=== PATIENT | female | born 2000 | race Hispanic/Latino ===

== ENCOUNTER 2023-06-18 07:42 | Inpatient (IN) | payer OTHER ==
[2023-06-18] VITALS (16 sets, daily range): BP systolic 116–142; BP diastolic 64–89
[~2023-06-18] VITALS: Ht 154.9 cm; Wt 90.4 kg
[2023-06-18] MEDS ORDERED: URSO300C3 PO (07:59)
[2023-06-18] MEDS ORDERED: MULTTAB20 PO (07:59)
[2023-06-18] MEDS ORDERED: HOME MED LIST COMPLETE! XX SCH (08:10)
[2023-06-18] MEDS ORDERED: OXYTOCIN DRIP 30 UNITS in IV 1 EA IV PRN ×4 (08:20)
[2023-06-18] MEDS ORDERED: TRANEXAMIC ACID INJection 1,000 MG in NS 100 ML IV PRN (08:20)
[2023-06-18] MEDS ORDERED: CARBOPROST TROMETHAMINE 250 MCG/ML AMP IM PRN (08:20)
[2023-06-18] MEDS ORDERED: LIDOCAINE 1% MDV 20ML VIAL INFIL PRN (08:20)
[2023-06-18] MEDS ORDERED: METHYLERGONOVINE MALEATE 0.2MG/ML 1ML VIAL IM PRN (08:20)
[2023-06-18 09:08] LABS: HEMATOCRIT 32.8 % (36.0-47.0); HEMOGLOBIN 11.1 g/dl (12.0-15.5); MEAN CORPUSCULAR HEMOGLOBIN 30.4 pg (27.0-33.0); MEAN CORPUSCULAR HGB CONC 33.8 g/dl (32.0-36.5); MEAN CORPUSCULAR VOLUME 89.9 fl (80.0-96.0); PLATELET COUNT, AUTOMATED 211 10^3/uL (150-450); RED BLOOD COUNT 3.65 10^6/uL (4.00-5.40); WHITE BLOOD COUNT 8.7 10^3/uL (4.0-10.0)
[2023-06-18] MEDS ORDERED: OXYTOCIN DRIP 30 UNITS in IV 1 EA IV SCH (09:30)
[2023-06-18 09:34] LABS: LDH LACTATE DEHYDROGENASE 281 U/L (120-246)
[2023-06-18 09:35] LABS: ALT/SGPT 16 U/L (7.0-40); AST/SGOT 23 U/L (<34); BILIRUBIN,TOTAL 0.2 MG/DL (0.3-1.2); CREATININE FOR GFR 0.57 MG/DL (0.55-1.30); GLOMERULAR FILTRATION RATE > 60.0 (>60)
[2023-06-18 09:42] LABS: TOTAL PROTEIN,RANDOM URINE 45.1 MG/DL (0.0-14.0)
[2023-06-18 09:48] LABS: CREATININE,RANDOM URINE 152.8 MG/DL
[2023-06-18] MEDS: miSOPROStol 50MCG 1/2 TABLET PO PRN ×4 (09:52→22:11)
[2023-06-18 09:59] LABS: URIC ACID 3.9 MG/DL (3.1-7.8)
[2023-06-19] VITALS (21 sets, daily range): BP systolic 106–144; BP diastolic 58–92
[2023-06-19] MEDS: miSOPROStol 50MCG 1/2 TABLET PO PRN (06:17)
[2023-06-19] MEDS: LR 1,000 ML IV SCH (18:42)
[2023-06-19] MEDS ORDERED: ONDANSETRON 4MG 2ML VIAL IV PRN (18:50)
[2023-06-19] MEDS ORDERED: LR 1,000 ML IV SCH (19:35)
[2023-06-19] MEDS ORDERED: OXYTOCIN DRIP 30 UNITS in IV 1 EA IV SCH (19:35)
[2023-06-20] VITALS (54 sets, daily range): BP systolic 105–164; BP diastolic 56–93; O2SAT 98
[2023-06-20] MEDS: LR 1,000 ML IV SCH ×3 (02:41→09:12)
[2023-06-20] MEDS ORDERED: EPIDURAL/PCA KEYS XX PRN (02:55)
[2023-06-20] MEDS ORDERED: diphenhydrAMINE 50MG/ML VIAL IV PRN (02:55)
[2023-06-20] MEDS ORDERED: ePHEDrine SULFATE 25 MG/5 ML(5MG/ML) SYRINGE IVP PRN (02:55)
[2023-06-20] MEDS ORDERED: NALOXONE INJ 0.4MG/1ML VIAL IV PRN (02:55)
[2023-06-20] MEDS ORDERED: ONDANSETRON 4MG 2ML VIAL IV PRN (02:55)
[2023-06-20] MEDS ORDERED: FENTANYL/ROPIVACAINE/NACL BAG 100 ML EPIDURAL SCH (02:55)
[2023-06-20] MEDS ORDERED: LR 500 ML IV PRN (02:55)
[2023-06-20] MEDS ORDERED: ACETAMINOPHEN TAB 650MG DOSE (2X325MG) PO PRN (10:15)
[2023-06-20] MEDS ORDERED: METHYLERGONOVINE MALEATE 0.2 MG TAB PO PRN (10:15)
[2023-06-20] MEDS ORDERED: DOCUSATE SODIUM 100MG CAPSULE PO PRN (10:15)
[2023-06-20] MEDS ORDERED: OXYTOCIN DRIP 30 UNITS in IV 1 EA IV SCH (10:15)
[2023-06-20] MEDS ORDERED: DIBUCAINE 1% OINTMENT 30GM TOP PRN (10:15)
[2023-06-20] MEDS ORDERED: IBUPROFEN 600MG TAB PO PRN (10:15)
[2023-06-20] MEDS: ACETAMINOPHEN 500 MG TAB PO PRN (13:50)
[2023-06-20] MEDS: IBUPROFEN 800 MG TAB PO PRN (18:41)
[2023-06-21] MEDS: ACETAMINOPHEN 500 MG TAB PO PRN ×3 (00:38→23:16)
[2023-06-21 06:00] VITALS: BP 130/68; O2SAT 100
[2023-06-21] MEDS: PRENATAL VITAMINS CHEWABLE TABLET PO SCH (09:35)
[2023-06-21] MEDS: IBUPROFEN 800 MG TAB PO PRN (16:00)
[2023-06-21 18:00] VITALS: BP 121/69; O2SAT 97
[2023-06-22 06:00] VITALS: BP 138/75; O2SAT 99
[2023-06-22] MEDS ORDERED: MEASLES,MUMPS,RUBELLA VACCINE INJ (MMR-II) SC.IMMUN ONE (09:00)
[2023-06-22] MEDS: PRENATAL VITAMINS CHEWABLE TABLET PO SCH (09:26)
[2023-06-22] MEDS: ACETAMINOPHEN 500 MG TAB PO PRN (09:29)
[2023-06-22] MEDS ORDERED: INFLUENZA QUADRIVALENT PF VACCINE 0.5ML SYRINGE IM.IMMUN ONE (11:00)
== END 2023-06-22 13:06 | disposition home or self-care (01) | DRG 805 ==
LOC: M LDI 07:42 → M OBS 06-20 15:20
PROVIDERS: ADMIT Obstetrics & Gynecology; ATTEND Advanced Practice Midwife
PROC: 3E0P7GC Introduction of Other Therapeutic Substance into Female Reproductive, Via Natural or Artificial Opening (ICD-10-PCS; 2023-06-18)
PROC: 10E0XZZ Delivery of Products of Conception, External Approach (ICD-10-PCS; principal; 2023-06-20)
PROC: 0HQ9XZZ Repair Perineum Skin, External Approach (ICD-10-PCS; 2023-06-20)
PROC: 10907ZC Drainage of Amniotic Fluid, Therapeutic from Products of Conception, Via Natural or Artificial Opening (ICD-10-PCS; 2023-06-20)
DX: O26.62 Liver and biliary tract disorders in childbirth (principal); Z37.0 Single live birth; K83.1 Obstruction of bile duct; O76 Abnormality in fetal heart rate and rhythm complicating labor and delivery; Z3A.37 37 weeks gestation of pregnancy; O13.4 Gestational [pregnancy-induced] hypertension without significant proteinuria, complicating childbirth; O70.0 First degree perineal laceration during delivery; O69.81X0 Labor and delivery complicated by cord around neck, without compression, not applicable or unspecified

== ENCOUNTER 2024-05-01 08:28 | Emergency (ER) | payer OTHER ==
[~2024-05-01] VITALS: Ht 154.9 cm; Wt 76.8 kg
[~2024-05-01 08:28] MED LIST: MULTTAB20 PO; URSO300C3 PO
[2024-05-01 10:57] LABS: BASO % 0.5 % (0.0-1.0); EOS % 0.3 % (0.0-3.0); HEMATOCRIT 36.7 % (36.0-47.0); HEMOGLOBIN 12.4 g/dl (12.0-15.5); LYMPH # 2.5 10^3/uL (1.5-5.0); LYMPH % 32.8 % (24.0-44.0); MEAN CORPUSCULAR HEMOGLOBIN 29.5 pg (27.0-33.0); MEAN CORPUSCULAR HGB CONC 33.8 g/dl (32.0-36.5); MEAN CORPUSCULAR VOLUME 87.2 fl (80.0-96.0); MONO # 0.4 10^3/uL (0.0-0.8); MONO % 5.5 % (2.0-8.0); NEUTROPHILS # 4.6 10^3/uL (1.5-8.5); NEUTROPHILS % 60.6 % (36.0-66.0); PLATELET COUNT, AUTOMATED 262 10^3/uL (150-450); RED BLOOD COUNT 4.21 10^6/uL (4.00-5.40); WHITE BLOOD COUNT 7.6 10^3/uL (4.0-10.0)
[2024-05-01] MEDS: ACETAMINOPHEN 325 MG TAB PO ONE (11:02)
[2024-05-01 11:21] LABS: CK-MB VALUE MASS < 1.0 NG/ML (<3.6)
[2024-05-01 11:23] LABS: CPK CREATINE PHOSPHOKINASE 92 U/L (34-145); MB/CK RELATIVE INDEX 1.08 (< OR =4)
[2024-05-01] MEDS: LIDOCAINE 5% (LIDODERM) PATCH TD ONE (11:30)
[2024-05-01 11:44] LABS: ALBUMIN 3.5 G/DL (3.2-5.2); ALKALINE PHOSPHATASE 93 U/L (46-116); ALT/SGPT 38 U/L (7.0-40); AST/SGOT 27 U/L (<34); BILIRUBIN,TOTAL 0.4 MG/DL (0.3-1.2); BLOOD UREA NITROGEN 16 MG/DL (9-23); CARBON DIOXIDE LEVEL 25 MMOL/L (20-31); CHLORIDE LEVEL 108 MMOL/L (98-107); GLOMERULAR FILTRATION RATE > 60.0 (>60); GLUCOSE, FASTING 90 MG/DL (60-100); SODIUM LEVEL 138 MMOL/L (136-145); TOTAL PROTEIN 7.1 G/DL (5.7-8.2)
[2024-05-01 11:52] VITALS: BP 104/75; TEMP 97.5; O2SAT 100
[2024-05-01] MEDS ORDERED: LIDO5DIS41 TOP (11:54)
[2024-05-01] MEDS ORDERED: IBUP-1022 PO (11:54)
[2024-05-01] MEDS ORDERED: TIZA4CAP3 PO (11:54)
[2024-05-01] MEDS ORDERED: ACET325C5 PO (11:54)
== END 2024-05-01 12:28 | disposition home or self-care (01) ==
LOC: M ED 08:28
DX: S20.219A Contusion of unspecified front wall of thorax, initial encounter (principal); S13.4XXA Sprain of ligaments of cervical spine, initial encounter; Y92.410 Unspecified street and highway as the place of occurrence of the external cause; Y93.9 Activity, unspecified; Y99.9 Unspecified external cause status; V43.52XA Car driver injured in collision with other type car in traffic accident, initial encounter; R00.1 Bradycardia, unspecified; F17.290 Nicotine dependence, other tobacco product, uncomplicated; F10.10 Alcohol abuse, uncomplicated; Z79.1 Long term (current) use of non-steroidal anti-inflammatories (NSAID); Z79.899 Other long term (current) drug therapy